=== PATIENT | male | born 1965 | race Caucasian/White ===

== ENCOUNTER → 2024-05-12 15:55 | Outpatient (REF) | payer OTHER, SELFPAY | LOC: HWRCS 15:55 | PROVIDERS: ATTENDING PHYSICIAN Internal Medicine Cardiovascular Disease; FAMILY PHYSICIAN Registered Nurse | DX: R07.89 Other chest pain (principal); R06.02 Shortness of breath; R94.31 Abnormal electrocardiogram [ECG] [EKG] | CPT/HCPCS: 93306 ==

== ENCOUNTER → 2024-05-17 08:15 | Outpatient (REF) | payer OTHER, SELFPAY ==
--- NOTE | 2024-05-17 12:40 | CARDSERVLU ---
Echocardiogram with Lumason completed after protocol screening completed. Allergies verified.
Patent IV site: 22g angio inserted in left hand, 1st attempt
IV site flushed with 0.9% NaCl pre and post administration.
Diluted bolus method utilized to enhance visualization of ventricular cox.
Total volume given: 5 mL
Patient tolerated all procedures well without complications.
IV discontinued and bandage applied after pressure held.
== END ==
LOC: RCS 08:15
PROVIDERS: ATTENDING PHYSICIAN Internal Medicine Cardiovascular Disease; FAMILY PHYSICIAN Registered Nurse
DX: R07.89 Other chest pain (principal); R06.02 Shortness of breath; R94.31 Abnormal electrocardiogram [ECG] [EKG]
CPT/HCPCS: 93017; 93350; Q9950